=== PATIENT | female | born 1960 | race Caucasian/White ===

== ENCOUNTER → 2023-08-10 15:00 | Outpatient (REF) | payer OTHER, SELFPAY | LOC: HWRAD 15:00 | PROVIDERS: ATTENDING PHYSICIAN Internal Medicine Rheumatology; FAMILY PHYSICIAN Family Medicine | DX: M17.10 Unilateral primary osteoarthritis, unspecified knee (principal); M22.2X1 Patellofemoral disorders, right knee | CPT/HCPCS: 73560; 73565 ==

== ENCOUNTER → 2023-09-14 15:59 | Outpatient (REF) | payer OTHER, SELFPAY | LOC: WDC 15:59 | PROVIDERS: ATTENDING PHYSICIAN Obstetrics & Gynecology; FAMILY PHYSICIAN Family Medicine | DX: Z12.31 Encounter for screening mammogram for malignant neoplasm of breast (principal) | CPT/HCPCS: 77063; 77067 ==

== ENCOUNTER → 2024-10-01 18:35 | Outpatient (REF) | payer OTHER, SELFPAY | LOC: WDC 18:35 | PROVIDERS: ATTENDING PHYSICIAN Family Medicine | DX: Z12.31 Encounter for screening mammogram for malignant neoplasm of breast (principal) | CPT/HCPCS: 77063; 77067 ==